=== PATIENT | female | born 1965 | race Caucasian/White ===

== ENCOUNTER → 2019-12-08 08:53 | Outpatient (CLI) | payer BC ==
[2019-12-08 10:10] LABS: C-REACTIVE PROTEIN 0.4 mg/dL (0.0-0.9); THYROID STIMULATING HORMONE 3.22 uIU/mL (0.36-3.74)
[2019-12-08 10:42] LABS: ERYTHROCYTE SEDIMENTATION RATE 3 mm/hr (0-30)
[2019-12-09 15:11] LABS: ANA REFLEX - DIRECT Negative (Negative)
== END | disposition home or self-care (01) ==
LOC: D.LAB 08:53
PROVIDERS: ATTEND Internal Medicine Pulmonary Disease
DX: Z11.59 Encounter for screening for other viral diseases (principal)

== ENCOUNTER → 2019-12-09 12:21 | Outpatient (CLI) | payer BC | END | disposition home or self-care (01) | LOC: D.RT 12:21 | PROVIDERS: ATTEND Internal Medicine Pulmonary Disease | DX: R06.09 Other forms of dyspnea (principal); R53.81 Other malaise; R05 Cough ==